=== PATIENT | female | born 1995 | race Caucasian/White ===

== ENCOUNTER → 2017-10-02 | Outpatient (CLI) | payer BC ==
[~2017-10-02] MED LIST: PRENCAP6 PO; ZOFR8TAB PO
--- NOTE | 2017-10-04 12:23 | EKG ---
Date Performed: 10/02/2017 Time Performed: 13:10:10 PTAGE: 22 years EKG: Sinus bradycardia with sinus arrhythmia Normal ECG except for rate NO PREVIOUS TRACING DOCTOR: Lori Solis Interpretating Date/Time 10/04/2017 12:21:42
== END ==
LOC: CPRE 12:49
PROVIDERS: ATTEND Obstetrics & Gynecology
DX: Z01.810 Encounter for preprocedural cardiovascular examination (principal)
CPT/HCPCS: 93005

== ENCOUNTER → 2017-10-07 | Day surgery (SDC) | payer BC ==
--- NOTE | 2017-10-06 22:41 | MH ---
cc: JANISGAYATRI DATE OF ADMISSION 10/07/2017 ADMISSION DIAGNOSES 1. This at 15 weeks. 2. Incompetent cervix. HISTORY OF PRESENT ILLNESS This is a 22-year-old single, white female, para 1-2-1-2 with LMP of 06/20/2017, EDC of 03/27/2018. Her past OB history notable for first delivery in 2013 at 34 weeks following premature rupture of membranes and labor. The survived and did well. In January of 2015 she had a delivery at 22 weeks, breech with demise felt to be due to incompetent cervix. The third she had cerclage placed at 15-16 weeks, had Meenu injections and progressed to 37 weeks when she delivered the day after cerclage was removed, a healthy term . She had spontaneous at 5-6 weeks in April of this year. She had ultrasound on 09/18/2017 showed a viable . She is now admitted for Castellano cerclage. Additional past medical history, MEDICATIONS Vitamins. ALLERGIES None TRANSFUSIONS None. SOCIAL HISTORY She is single, employed. Alcohol, tobacco and drugs are none. FAMILY HISTORY Her family history is noncontributory. PHYSICAL EXAMINATION GENERAL: This is a well-nourished, well-developed white female. VITAL SIGNS: Stable. HEENT: Exam is normal. CHEST: Clear. HEART: Regular rate. BREASTS: Symmetrical. ABDOMEN: The abdomen is benign. Gravid. Heart tones are normal. PELVIC: The uterus is about 15-16 weeks size. Cervix is closed and long. EXTREMITIES: Normal. ASSESSMENT As above. PLAN She is now admitted for Castellano cerclage which had been successful in her last . While in the office I have explained the procedure, the risks, benefits and complications and she is aware there is a risk of infection, bleeding, membrane rupture and potentially loss of despite all of our best efforts. She would like to proceed. MD ANNA Puga/KK /10:01 PM /10:29 PM
[~2017-10-07] VITALS: Ht 160 cm; Wt 79.7 kg
[~2017-10-07] MED LIST changes: +*morphine SULFATE 4 MG/ML PERIprocedure ONLY ONE; +ACETAMINOPHEN 1000 MG/100 ML 100 ML IV SCH; +CHLORHEXIDINE GLUCONATE 2 % 1 PACK (2 CLOTHS) TOPICAL PRN; +DO NOT ADM ANY ANTICOAGULANT DRUGS PRN; +LACTATED RINGER'S 1000 ML IV PRN; +LIDOCAINE HCL 1% PF 5 ML SYRINGE OTHER ONE; +METOCLOPRAMIDE HCL 10 MG/2 ML VIAL IV PRN; +METOPROLOL TARTRATE 25 MG TAB PO PRN; +ONDANSETRON HCL 4 MG/2 ML VIAL IV ONE; +POVIDONE IODINE 5% (ANTISEPSIS KIT) 4 APPLICATIONS EACH NARE PRN; -PRENCAP6 PO; +PROPOFOL 200 MG/20 ML AMP IV ONE; +SODIUM CHLORID 0.9% 500 ML IV PRN; +SUCCINYLCHOLINE CHLORIDE 100 MG/5 ML SYRINGE IV PUSH ONE; +ceFAZolin 2 GM PREMIX 50 ML IV SCH; +oxyCODONE/ACETAMINOPHEN 5 MG/325 MG TAB PO PRN
[2017-10-07 09:25] VITALS: BP 92/68; PULSE 62; RESP 16; TEMP 97.4; O2SAT 100
--- NOTE | 2017-10-07 23:13 | MP ---
cc: GAYATRI BRUCE DATE OF SURGERY 10/07/17 PREOPERATIVE DIAGNOSIS 1. at 15 weeks. 2. Incompetent cervix. POSTOPERATIVE DIAGNOSIS 1. at 15 weeks. 2. Incompetent cervix. PROCEDURE Cerclage x2 ANESTHESIA General ET SURGEON Joseph Bruce MD ESTIMATED BLOOD LOSS Less than 25 mL FLUIDS 1 liter crystalloid. OBJECTIVE FINDINGS Following induction of adequate general endotracheal anesthesia, the patient was prepped and draped supine on the operating table dorsal lithotomy position in usual sterile fashion with the bladder being drained by Desouza catheterization. Uterus is about 15 weeks' size. Cervix palpated about 2 cm intracervical. The bladder was drained by Desouza catheterization. Heavy weighted speculum was placed in posterior horn of the vagina. The anterior lip of the cervix grasped with single tooth tenaculum and the Castellano cerclage was placed with 2-0 Prolene and after tied down a second one placed above that. In both places, the suture was used following the puncture momin from her last cerclage which had been successful. When tied down, there was no bleeding. Cervical length was now about 3 cm intravaginal. There was no bleeding. There was no leakage of fluid. The Desouza was now removed and the patient was taken out of [facility]. She was awaken and taken to recovery room in good condition. MD ANNA Puga/ /7:55 AM /11:03 PM
== END | disposition home or self-care (01) ==
LOC: HSDC 05:36
PROVIDERS: ATTEND Obstetrics & Gynecology
DX: O34.42 Maternal care for other abnormalities of cervix, second trimester (principal); Z3A.15 15 weeks gestation of pregnancy
CPT/HCPCS: 00948; 59320; J0131; J0330; J0690; J2270; J2405; J3010; J7120

== ENCOUNTER → 2017-11-05 | Outpatient (CLI) | payer BC ==
[~2017-11-05] MED LIST changes: -*morphine SULFATE 4 MG/ML PERIprocedure ONLY ONE; -ACETAMINOPHEN 1000 MG/100 ML 100 ML IV SCH; -CHLORHEXIDINE GLUCONATE 2 % 1 PACK (2 CLOTHS) TOPICAL PRN; -DO NOT ADM ANY ANTICOAGULANT DRUGS PRN; -LACTATED RINGER'S 1000 ML IV PRN; -LIDOCAINE HCL 1% PF 5 ML SYRINGE OTHER ONE; -METOCLOPRAMIDE HCL 10 MG/2 ML VIAL IV PRN; -METOPROLOL TARTRATE 25 MG TAB PO PRN; -ONDANSETRON HCL 4 MG/2 ML VIAL IV ONE; -POVIDONE IODINE 5% (ANTISEPSIS KIT) 4 APPLICATIONS EACH NARE PRN; -PROPOFOL 200 MG/20 ML AMP IV ONE; -SODIUM CHLORID 0.9% 500 ML IV PRN; -SUCCINYLCHOLINE CHLORIDE 100 MG/5 ML SYRINGE IV PUSH ONE; -ceFAZolin 2 GM PREMIX 50 ML IV SCH; -oxyCODONE/ACETAMINOPHEN 5 MG/325 MG TAB PO PRN
== END ==
LOC: HPND 09:42
PROVIDERS: ATTEND Obstetrics & Gynecology
DX: O34.32 Maternal care for cervical incompetence, second trimester (principal); O09.292 Supervision of pregnancy with other poor reproductive or obstetric history, second trimester; O09.213 Supervision of pregnancy with history of pre-term labor, third trimester
CPT/HCPCS: 76811; 76817

== ENCOUNTER → 2017-11-24 | Outpatient (CLI) | payer BC | LOC: HPND 10:05 | PROVIDERS: ATTEND Obstetrics & Gynecology | DX: O34.32 Maternal care for cervical incompetence, second trimester (principal); O09.292 Supervision of pregnancy with other poor reproductive or obstetric history, second trimester; O43.192 Other malformation of placenta, second trimester | CPT/HCPCS: 76815; 76817 ==

== ENCOUNTER → 2017-12-02 | Outpatient (CLI) | payer BC | LOC: HPND 10:05 | PROVIDERS: ATTEND Obstetrics & Gynecology | DX: O09.292 Supervision of pregnancy with other poor reproductive or obstetric history, second trimester (principal); O34.32 Maternal care for cervical incompetence, second trimester | CPT/HCPCS: 76816; 76817 ==

== ENCOUNTER 2018-03-10 14:55 | Emergency (ER) | payer OTHER, BC ==
[~2018-03-10] VITALS: Ht 160 cm; Wt 81.0 kg
[2018-03-10 14:59] VITALS: PULSE 104; RESP 24; O2SAT 98
[2018-03-10 15:05] VITALS: O2SAT 100
[2018-03-10] MEDS ORDERED: SODIUM CHLOR 0.9% 1000 ML INJ 1,000 ML IV SCH (15:10)
[2018-03-10] MEDS ORDERED: SODIUM CHLORIDE 0.9% FLUSH 10 ML FLUSH IVF PRN (15:15)
[2018-03-10] MEDS ORDERED: ACETAMINOPHEN 1000 MG/100 ML 100 ML IV ONE (15:15)
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
[2018-03-10 15:52] LABS: AUTOMATED NEUTROPHIL # 12.7 TH/MM3 (1.8-7.7); BASOPHIL # 0.1 TH/MM3 (0-0.2); BASOPHIL % 0.4 % (0.0-2.0); EOSINOPHIL % 0.3 % (0.0-4.0); HEMATOCRIT 37.1 % (35.0-46.0); HEMOGLOBIN 12.6 GM/DL (11.6-15.3); LYMPH % 11.1 % (9.0-44.0); LYMPHOCYTE # 1.7 TH/MM3 (1.0-4.8); MEAN CELL VOLUME 84.7 FL (80.0-100.0); MEAN CORPUSCULAR HEMOGLOBIN 28.8 PG (27.0-34.0); MEAN CORPUSCULAR HGB CONC 33.9 % (32.0-36.0); MONO % 5.7 % (0.0-8.0); MONOCYTE # 0.9 TH/MM3 (0-0.9); NEUT % 82.5 % (16.0-70.0); PLATELET COUNT 262 TH/MM3 (150-450); RED BLOOD COUNT 4.38 MIL/MM3 (4.00-5.30); RED CELL DISTRIBUTION WIDTH 13.8 % (11.6-17.2); WHITE BLOOD COUNT 15.4 TH/MM3 (4.0-11.0)
[2018-03-10 15:56] LABS: BICARBONATE 19.3 MEQ/L (21.0-32.0); CALCIUM 8.2 MG/DL (8.5-10.1); CREATININE 0.4 MG/DL (0.50-1.00)
[2018-03-10] MEDS ORDERED: IOHEXOL 350 MG/ML 10 ML VIAL (for RAD DIAG) IVCONTRAST ONE (16:43)
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
[2018-03-10 17:50] VITALS: BP 142/75; PULSE 90; RESP 18; O2SAT 100
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
[2018-03-10 18:50] VITALS: BP 116/80; PULSE 63; RESP 18; O2SAT 100
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
== END 2018-03-10 20:00 | disposition left against medical advice (07) ==
LOC: NEPE 14:55
DX: O9A.213 Injury, poisoning and certain other consequences of external causes complicating pregnancy, third trimester (principal); O26.893 Other specified pregnancy related conditions, third trimester; S83.91XA Sprain of unspecified site of right knee, initial encounter; S83.92XA Sprain of unspecified site of left knee, initial encounter; R10.9 Unspecified abdominal pain; R07.9 Chest pain, unspecified; S70.211A Abrasion, right hip, initial encounter; S80.01XA Contusion of right knee, initial encounter; V43.52XA Car driver injured in collision with other type car in traffic accident, initial encounter; Z3A.37 37 weeks gestation of pregnancy
CPT/HCPCS: 70551; 71045; 72141; 73564; 74177; 80048; 85025; 85610; 85730; 86850; 86900; 86901; 96365; 99291; J0131; J7030; L0150; Q9967